=== PATIENT | female | born 1990 | race Two or more races ===

== ENCOUNTER → 2023-03-23 | Outpatient (CLI) | payer MEDICAID, OTHER | LOC: M WHC 11:04 | PROVIDERS: ATTEND Specialist | DX: O16.3 Unspecified maternal hypertension, third trimester (principal) ==

== ENCOUNTER 2023-03-28 12:42 | Outpatient (CLI) | payer OTHER ==
[2023-03-28] VITALS (7 sets, daily range): BP systolic 128–155; BP diastolic 75–90
[~2023-03-28] VITALS: Ht 162.6 cm; Wt 89.1 kg
[2023-03-28] MEDS ORDERED: NIFE1TAB52 PO (13:12)
[2023-03-28] MEDS ORDERED: PRENTAB9 PO (13:12)
[2023-03-28] MEDS ORDERED: ACET-907 PO (13:12)
[2023-03-28] MEDS ORDERED: FAMO20TA PO (13:12)
[2023-03-28] MEDS ORDERED: ASPI81CH33 PO (13:12)
[2023-03-28] MEDS ORDERED: OMEP1CAP73 PO (13:12)
[2023-03-28] MEDS ORDERED: HOME MED LIST COMPLETE! XX SCH (13:15)
[2023-03-28 14:04] LABS: HEMATOCRIT 32.6 % (36.0-47.0); HEMOGLOBIN 10.5 g/dl (12.0-15.5); MEAN CORPUSCULAR HGB CONC 32.2 g/dl (32.0-36.5); MEAN CORPUSCULAR VOLUME 83.8 fl (80.0-96.0); PLATELET COUNT, AUTOMATED 257 10^3/uL (150-450); RED BLOOD COUNT 3.89 10^6/uL (4.00-5.40); WHITE BLOOD COUNT 4.8 10^3/uL (4.0-10.0)
[2023-03-28 14:30] LABS: URIC ACID 2.9 MG/DL (3.1-7.8)
[2023-03-28 14:32] LABS: LDH LACTATE DEHYDROGENASE 166 U/L (120-246)
[2023-03-28 14:33] LABS: ALT/SGPT 11 U/L (7.0-40); AST/SGOT 8 U/L (<34); BILIRUBIN,TOTAL 0.3 MG/DL (0.3-1.2); CREATININE FOR GFR 0.49 MG/DL (0.55-1.30); GLOMERULAR FILTRATION RATE > 60.0 (>60)
[2023-03-28 15:47] LABS: CREATININE,RANDOM URINE 14.2 MG/DL
[2023-03-28 15:48] LABS: TOTAL PROTEIN,RANDOM URINE < 6.0 MG/DL (0.0-14.0)
== END 2023-03-28 17:16 | disposition home or self-care (01) ==
LOC: M LDO 12:42
PROVIDERS: ATTEND Advanced Practice Midwife
DX: O10.013 Pre-existing essential hypertension complicating pregnancy, third trimester (principal); Z87.59 Personal history of other complications of pregnancy, childbirth and the puerperium; Z91.018 Allergy to other foods; Z3A.35 35 weeks gestation of pregnancy
CPT/HCPCS: 36415; 59025; 82247; 82565; 82570; 83615; 84156; 84450; 84460; 84550; 85027; G0463

== ENCOUNTER → 2023-03-29 | Outpatient (REF) | payer OTHER ==
[~2023-03-29] MED LIST: ACET-907 PO; ASPI81CH33 PO; FAMO20TA PO; NIFE1TAB52 PO; OMEP1CAP73 PO; PRENTAB9 PO
== END ==
LOC: M PLALAB 08:19
PROVIDERS: ATTEND Advanced Practice Midwife
DX: Z53.9 Procedure and treatment not carried out, unspecified reason (principal)